=== PATIENT | male | born 1990 | race Caucasian/White ===

== ENCOUNTER 2022-03-09 15:23 | Emergency (ER) | payer OTHER, SELFPAY ==
[2022-03-09 15:30] VITALS: BP 103/56; PULSE 68; RESP 18; TEMP 35.8; O2SAT 98; BMI 27.0
--- NOTE | 2022-03-09 15:38 | ED.GENADULT ---
HPI - General Adult General Chief complaint: Skin/Abscess/Foreign Body Stated complaint: STEPPED ON NAIL - RIGHT FOOT - NEEDS TETANUS Time Seen by Provider: 03/09/22 15:32 Source: patient Mode of arrival: ambulatory Limitations: no limitations History of Present Illness HPI narrative: 31-year-old male coming in today after stepping on a nail at home. They are remodeling and he was walk around without any issues. Denies any other injury. Is unsure of his tetanus shot. Patient is here with his father. Related Data Previous Rx's Medication Instructions Recorded amoxicillin 875 mg-potassium 1 tab PO BID 7 days #14 tabs 03/09/22 clavulanate 125 mg tablet Allergies Allergy/AdvReac Type Severity Reaction Status Date / Time No Known Drug Allergies Allergy Verified 03/09/22 15:30 Review of Systems Status of ROS: Reports: 6 or more systems reviewed and unremarkable except as noted in History and below Exam Narrative: Exam Narrative: Well-nourished well-developed patient in no acute distress. Alert and oriented. Answers questions appropriately although he is a bit slow to answer. He smells very strongly of marijuana. HEENT: Normocephalic atraumatic. Pupils are equally round reactive to light. Extraocular muscles are intact. Conjunctivae are injected bilaterally. Moist mucous membranes. Extremities: Bilateral lower extremities are without edema. Normal DP and PT pulses. Patient has a puncture wound on the lateral plantar surface of the right foot. He has full range of motion of all the toes and the ankle. Skin: Well perfused without any obvious rashes. Course Course Hospital Course: Wound was clean and dressed per nursing. Tetanus shot was updated. Medical Decision Making MDM Narrative Medical decision making narrative: Puncture wound with a nail to the bottom of the foot. Tetanus shot was updated. Will put the patient on antibiotics given the potential risk of infection of this injury. Patient had no other questions. Discharge Plan Discharge Clinical Impression: Puncture wound Patient Disposition: Home, Self-Care Condition: Stable Additional Instructions: Keep foot clean and dry. Shower like he normally would but do not soak your foot such as taking baths or going swimming. Take all antibiotics as prescribed. Prescriptions: New amoxicillin-pot clavulanate 875-125 mg tablet 1 tab PO BID 7 Days Qty: 14 0RF Stand Alone Forms: [facility] Info Instructions
[2022-03-09] MEDS: TETANUS/DIPHTH/PERTUSSIS 0.5 ML SYRINGE IM (15:56)
--- NOTE | 2022-03-09 16:00 | ED.NURSE ---
did soak foot in Hibiclens and warm water. dressed with bacitracin and bandaid.
== END 2022-03-09 16:10 | disposition home or self-care (01) ==
PROVIDERS: Emergency Provider Family Medicine
DX: S91.341A Puncture wound with foreign body, right foot, initial encounter (principal)
CPT/HCPCS: 90471; 90715; 99283